=== PATIENT | female | born 1960 | race American Indian/Alaskan Native ===

== ENCOUNTER 2017-01-02 14:20 | Emergency (ER) | payer BC ==
[2017-01-02 14:32] VITALS: TEMP 97.8
[2017-01-02] MEDS ORDERED: Labetalol 5 mg/ml Inj 20ML IV ONE (14:47)
[2017-01-02 15:21] LABS: BASO # 0.01 K/mm3 (0.0-2.0); BASO % 0.2 % (0.0-3.0); EOS # 0.1 (0.0-0.7); EOS % 1.2 % (1.5-5.0); GRAN # 1.85 (1.4-6.5); GRAN % 46.3 % (50.0-68.0); HEMATOCRIT 39.1 % (36.0-48.0); LYMPH # 1.8 (1.2-3.4); LYMPH % 45.6 % (22.0-35.0); MEAN CELL VOLUME 87.7 fl (80.0-105.0); MEAN CORPUSCULAR HEMOGLOBIN 28.7 pg (25.0-35.0); MEAN CORPUSCULAR HGB CONC 32.7 g/dl (31.0-37.0); MEAN PLATELET VOLUME 10.9 fl (7.0-11.0); MONO # 0.3 (0.1-0.6); MONO % 6.7 % (1.0-6.0); RED CELL DISTRIBUTION WIDTH 13.7 % (11.5-14.5)
[2017-01-02 15:29] LABS: URINE BILIRUBIN NEGATIVE (NEGATIVE); URINE BLOOD TRACE-INTACT (NEGATIVE); URINE GLUCOSE (UA) NEGATIVE (NEGATIVE); URINE KETONE NEGATIVE (NEGATIVE); URINE LEUKOCYTE ESTERASE NEGATIVE Leu/uL (NEGATIVE); URINE PROTEIN NEGATIVE mg/dL (<30 mg/dL); URINE UROBILINOGEN 0.2 E.U./dL (<1 E.U./dL)
[2017-01-02 15:35] LABS: URINE APPEARANCE CLEAR (CLEAR); URINE COLOR YELLOW (YELLOW)
[2017-01-02 15:45] LABS: URINE RBC 0 - 2 /hpf (0-2); URINE WBC 0 - 2 /hpf (0-6)
[2017-01-02 15:46] LABS: URINE BACTERIA MOD (NEG)
--- NOTE | 2017-01-02 15:51 | CT ---
PROCEDURE: CT HEAD WITHOUT CONTRAST. HISTORY: Headaceh with facial numbness COMPARISON: None available. TECHNIQUE: Axial computed tomography images were obtained through the head/brain without intravenous contrast. Radiation dose: Total exam DLP = 726.57 mGy-cm. This CT exam was performed using one or more of the following dose reduction techniques: Automated exposure control, adjustment of the mA and/or kV according to patient size, and/or use of iterative reconstruction technique. FINDINGS: HEMORRHAGE: No intracranial hemorrhage. BRAIN: No mass effect or edema. No atrophy or chronic microvascular ischemic changes. There is a nodular calcification along the left side of the tentorium cerebelli. There is multifocal nodular calcification along the anterior falx cerebrum and dural calcification along the right high frontal dura near the midline. This is not felt to be suspicious for meningioma. . VENTRICLES: Unremarkable. No hydrocephalus. CALVARIUM: Unremarkable. PARANASAL SINUSES: Unremarkable as visualized. No significant inflammatory changes. MASTOID AIR CELLS: Unremarkable as visualized. No inflammatory changes. OTHER FINDINGS: None. IMPRESSION: No intracranial mass, hemorrhage or evidence of acute infarct.
[2017-01-02 17:01] LABS: ALB/GLOB RATIO 1.2 (1.1-1.8); ALKALINE PHOSPHATASE 96 U/L (38-126); ALT/SGPT 28 U/L (7-56); AST/SGOT 32 U/L (14-36); BILIRUBIN,TOTAL 0.5 mg/dL (0.2-1.3); BLOOD UREA NITROGEN 13 mg/dL (7-21); CALCIUM 9.5 mg/dL (8.4-10.5); CARBON DIOXIDE 30 mmol/L (21-33); CHLORIDE 103 mmol/L (98-107); CHOLESTEROL 241 mg/dL (130-200); GFR AFRICAN-AMERICAN > 60; GLUCOSE,RANDOM 75 mg/dL (70-110); INR 1.06 (0.93-1.08); PARTIAL THROMBOPLASTIN TIME 35.3 Seconds (25.1-36.5); SODIUM 143 mmol/L (132-148); TOTAL PROTEIN 8.6 g/dL (5.8-8.3)
[2017-01-02 17:13] LABS: TROPONIN I < 0.01 ng/mL
--- NOTE | 2017-01-02 17:16 | ED PDOC ---
Arrival/HPI - General Chief Complaint: High Blood Pressure Time Seen by Provider: 01/02/17 14:33 Historian: Patient - History of Present Illness Narrative History of Present Illness (Text): 01/02/17 17:13 56yo female with PMHx of Hypertension biba for elevated hypertension and headache. Patient states she ran out of her antihypertensives days ago and started having headache. Notes numbness sensation to her left sided cheek area. States she saw her PMD today and was referred to ED for further evaluation. She however denies any focal weakness, nausea, vomiting, visual change, abdominal pain, ripping upper back pain, any other complaint. Past Medical History - Provider Review Nursing Documentation Reviewed: Yes - Infectious Disease Hx of Infectious Diseases: None - Reproductive Menopause: No - Cardiac Hx Hypertension: Yes - Pulmonary Hx Respiratory Disorders: No - Psychiatric Hx Substance Use: No - Anesthesia Hx Anesthesia Reactions: No Family/Social History - Physician Review Nursing Documentation Reviewed: Yes Family/Social History: Unknown Family HX Smoking Status: Unknown If Ever Smoked Hx Alcohol Use: Yes Frequency of alcohol use: Socially Hx Substance Use: No Allergies/Home Meds Allergies/Adverse Reactions: Allergies No Known Allergies Allergy (Verified 01/02/17 14:40) Home Medications: Home Meds Medication Instructions Recorded Confirmed Amlodipine Bes/Olmesartan Med 1 each PO DAILY 01/02/17 01/02/17 [Amlodipine-Olmesartan 5-20 mg] Review of Systems - Physician Review All systems were reviewed & negative as marked: Yes - Review of Systems Constitutional: Normal Eyes: Normal ENT: Normal Respiratory: Normal Cardiovascular: Normal Gastrointestinal: Normal Genitourinary Female: Normal Musculoskeletal: Normal Skin: Normal Neurological: Headache. absent: Dizziness, Focal Weakness, Speech Changes, Facial Droop Endocrine: Normal Hemo/Lymphatic: Normal Psychiatric: Normal Physical Exam Vital Signs Reviewed: Yes Vital Signs Temp Pulse Resp BP Pulse Ox 01/02/17 18:22 67 18 140/77 98 01/02/17 17:23 62 144/96 H 01/02/17 16:48 60 16 171/99 H 99 01/02/17 15:55 61 16 163/99 H 98 01/02/17 15:19 58 L 157/102 H 01/02/17 14:30 97.8 F 60 16 157/102 H 100 Temperature: Afebrile Blood Pressure: Hypertensive Pulse: Regular Respiratory Rate: Normal Appearance: Positive for: Well-Appearing, Non-Toxic, Comfortable Pain Distress: None Mental Status: Positive for: Alert and Oriented X 3 - Systems Exam Head: Present: Atraumatic, Normocephalic Pupils: Present: PERRL Extroacular Muscles: Present: EOMI Conjunctiva: Present: Normal Mouth: Present: Moist Mucous Membranes Neck: Present: Normal Range of Motion Respiratory/Chest: Present: Clear to Auscultation, Good Air Exchange. No: Respiratory Distress, Accessory Muscle Use Cardiovascular: Present: Regular Rate and Rhythm, Normal S1, S2. No: Murmurs Abdomen: Present: Normal Bowel Sounds. No: Tenderness, Distention, Peritoneal Signs Back: Present: Normal Inspection Upper Extremity: Present: Normal Inspection. No: Cyanosis, Edema Lower Extremity: Present: Normal Inspection. No: Edema Neurological: Present: GCS=15, CN II-XII Intact, Speech Normal, Motor Func Grossly Intact, Normal Sensory Function, Normal Cerebellar Funct, Gait Normal, Memory Normal, Normal 2Pt Descrimination, Other (No focal neurlogical deficit) Skin: Present: Warm, Dry, Normal Color. No: Rashes Psychiatric: Present: Alert, Oriented x 3, Normal Insight, Normal Concentration Medical Decision Making ED Course and Treatment: 01/02/17 18:43 56yo female in ED for elevated BP, headache and left cheek numbness. Pt was neurological intact in ED. Her BP improved in ED with antiHTN. Noted to be eating sandwich in ED. Lab was unremarkable. EKG NSR with LVH @ 65BPM with no ST changes Head CT - Negaitve Result was DW the pt. She is non complaint iwth her medication. Strongly advised to take her medications. Referred to her PMD. Advised TRT ED for any new or worsening symptoms. - Lab Interpretations Lab Results: 01/02/17 15:15 01/02/17 16:25 Lab Results 01/02/17 16:25: Sodium 143, Potassium 4.0, Chloride 103, Carbon Dioxide 30, Anion Gap 14, BUN 13, Creatinine 0.6 L, Est GFR ( Amer) > 60, Est GFR ( Non-Af Amer) > 60, Random Glucose 75, Calcium 9.5, Total Bilirubin 0.5, AST 32, ALT 28, Alkaline Phosphatase 96, Troponin I < 0.01, Total Protein 8.6 H, Albumin 4.7, Globulin 4.0, Albumin/Globulin Ratio 1.2, Triglycerides 94, Cholesterol 241 H, LDL Cholesterol Direct 117, HDL Cholesterol 85 H 01/02/17 16:25: PT 11.6, INR 1.06, APTT 35.3 01/02/17 15:15: Urine Color Yellow, Urine Appearance Clear, Urine pH 6.0, Ur Specific [place] 1.025, Urine Protein Negative, Urine Glucose (UA) Negative, Urine Ketones Negative, Urine Blood Trace-intact H, Urine Nitrate Negative, Urine Bilirubin Negative, Urine Urobilinogen 0.2, Ur Leukocyte Esterase Negative , Urine RBC 0 - 2, Urine WBC 0 - 2, Ur Epithelial Cells 4 - 5, Urine Bacteria Mod 01/02/17 15:15: WBC 4.0 L, RBC 4.46, Hgb 12.8, Hct 39.1, MCV 87.7, MCH 28.7, MCHC 32.7, RDW 13.7, Plt Count 269, MPV 10.9, Gran % 46.3 L, Lymph % (Auto) 45.6 H, Leon % (Auto) 6.7 H, Eos % (Auto) 1.2 L, Baso % (Auto) 0.2, Gran # 1.85 , Lymph # 1.8, Leon # 0.3, Eos # 0.1, Baso # 0.01 - RAD Interpretation Radiology Orders: 01/02/17 14:50 HEAD W/O CONTRAST [CT] Stat - Medication Orders Current Medication Orders: Discontinued Medications Hydralazine HCl (Apresoline) 10 mg IVP STAT STA Stop: 01/02/17 17:13 Last Admin: 01/02/17 17:23 Dose: 10 mg IVP Administration Document 01/02/17 17:23 OK (Rec: 01/02/17 17:23 OK [id number]) Charges for Administration # of IVP Administrations 1 MAY Pulse and Blood Pressure Document 01/02/17 17:23 OK (Rec: 01/02/17 17:23 OK [id number]) Pulse Pulse Rate (60-90 beats/min) 62 Blood Pressure Blood Pressure (100/60-150/90 mm Hg) 144/96 Labetalol HCl (Trandate) 20 mg IV ONCE ONE Stop: 01/02/17 14:48 Last Admin: 01/02/17 15:19 Dose: 20 mg eMAR Start Stop Document 01/02/17 15:19 HI (Rec: 01/02/17 15:19 OK [id number]) Intravenous Solution Start Date 01/02/17 Start Time 15:19 MAR Pulse and Blood Pressure Document 01/02/17 15:19 HI (Rec: 01/02/17 15:19 OK [id number]) Pulse Pulse Rate (60-90 beats/min) 58 Blood Pressure Blood Pressure (100/60-150/90 mm Hg) 157/102 Disposition/Present on Arrival - Present on Arrival Any Indicators Present on Arrival: No History of DVT/PE: No History of Uncontrolled Diabetes: No Urinary Catheter: No History of Decub. Ulcer: No History Surgical Site Infection Following: None - Disposition Have Diagnosis and Disposition been Completed?: Yes Diagnosis: Hypertension, Headache Disposition: HOME/ ROUTINE Disposition Time: 18:30 Patient Plan: Discharge Patient Problems: Current Active Problems Problem Status Onset Headache Acute Hypertension Acute Condition: IMPROVED Discharge Instructions (ExitCare): Hypertension (ED) Additional Instructions: Follow up with your doctor Return to ED for any new or worsening symptoms Referrals: Jessica Mtz MD [Family Provider] - Follow up with primary Forms: [employer] (Yi)
[2017-01-02 19:43] VITALS: BP 157/93; PULSE 77; RESP 16; O2SAT 96
--- NOTE | 2017-01-02 22:33 | CARD ---
APPROVED REPORT EKG Measurement Heart [id number] <Conclusion> Normal sinus rhythm Voltage criteria for left ventricular hypertrophy Abnormal ECG
== END 2017-01-02 18:56 | disposition home or self-care (01) ==
LOC: ED 14:20
DX: I10 Essential (primary) hypertension (principal); R51 Headache
CPT/HCPCS: 70450; 80053; 80061; 81001; 83036; 84484; 85025; 85610; 85730; 93005; 96374; 99285; J0360